=== PATIENT | male | born 1940 | race Caucasian/White ===

== ENCOUNTER 2017-02-28 12:35 | Day surgery (SDC) | payer MEDICARE, OTHER ==
[~2017-02-28] VITALS: Ht 180.3 cm; Wt 88.5 kg
[~2017-02-28 12:35] MED LIST: ASCO500T8 PO; ASPI325T32 PO; ATEN25TA PO; ATOR40TA69 PO; CHOL10002 PO; CLOP75TA3 PO; FLAX100031 PO; KETO120S3 TP; NAPR220C11 PO; RANI300C PO; Sodium Chloride LOK Flush 10 mL Syringe IV PRN; fentaNYL-PF 50 mCg/mL 2 mL Inj IVPUSH PRN
[2017-02-28] MEDS ORDERED: 0.9% Sodium Chloride 1,000 ML IV PRN (13:58)
[2017-02-28 14:09] VITALS: BP 152/84; PULSE 75; RESP 16; O2SAT 99
[2017-02-28] MEDS ORDERED: ASPI-973 PO (14:17)
[2017-02-28] MEDS ORDERED: METO25TA99 PO (14:18)
[2017-02-28] MEDS: 0.9% Sodium Chloride 1,000 ML IV PRN ×2 (15:00→15:16)
[2017-02-28 15:40] VITALS: BP 116/59; PULSE 68; RESP 16; O2SAT 97
--- NOTE | 2017-02-28 15:41 | PCM.ENDEGD ---
EGD Date of Service: February 28, 2017 Physician Ryan Young MD Pre Procedure Diagnosis: Reflux Post Procedure Dx & Findings: Gastric ulcer gastritis duodenitis duodenal ulcers. Procedure Esophagogastroduodenoscopy PROCEDURE IN DETAIL: After proper sedation, Olympus video endoscope was inserted into patient's mouth and esophagus was successfully intubated. Scope introduced esophagus. Esophagus showed normal shiny whitish mucosa consistent with squamous cell component. Z line was intact at 43 cm from the incisors; scope further advanced to the stomach. Stomach showed irritation erosion as well as 3-4 mm gastric ulcer with surrounding inflammation. Biopsies were obtained. Cardia fundus body antrum pylorus were all visualized. Retroflexion was done. Stomach was easily inflated and deflatable using air. Scope further events to the distal duodenum. Duodenum showed irritation redness consistent with linitis as well as several superficial ulcerations from the first pass to the second pass of the duodenum. Biopsies obtained of the ulcers as well as the duodenitis. Impression Gastric ulcer gastritis duodenitis duodenal ulcers. Recommendation Await biopsies Stop NSAIDs There is a history of allergies to PPI. If he indeed has significant allergies to PPI, consider high-dose Zantac with Carafate. If he does not have significant allergies to PPI, I would pursue PPI use. Follow up in GI clinic in one to 2 weeks to discuss this.. Presedation Assessment Risks and Benefits Informed consent was obtained from the patient after all risks and benefits including but not limited to drug reaction, infection, pain, bleeding, perforation, as well as alternatives were discussed. Patient monitoring Continuous pulse oximetry, cardiac monitoring, blood pressure monitoring, IV access, and oxygen at 2L per nasal cannula. Periprocedural Fentanyl: Fentanyl 100mcg Incrementally Midazolam: Midazolam 5mg Incrementally Complications There were no periprocedural complications identified. Post Procedure Plan Post Procedure Recommendations 1. Restrict activities today. 2. Resume normal activities in the morning. 3. Resume medications. 4. GERD behavioral modification: - Avoid fatty, acidic, spicy, large meals - Do not lie down after meals - Do not eat or drink anything for at least 2 1/2 hours before going to bed at night - Discontinue tobacco and alcohol - Decrease or avoid caffeine - Avoid chocolate and mints - Decrease weight - Avoid aspirin and non steroidal anti-inflammatory agents (NSAID) such as Aleve, Advil, Mobic, Naproxen, Ibuprofen, etc 5. Add proton pump inhibitor. Take 30 minutes before 1st meal of the day. 6. Patient informed of normal post procedure side effects as bloating, drowsiness, blood streaking in the stool 7. If gastric biopsy reveal H.pylori, continue with appropriate treatment 8. If small bowel biopsy reveals celiac, continue with appropriate treatment 9. Please don't hesitate to call me with any questions Ryan Young MD February 28, 2017 15:40
--- NOTE | 2017-02-28 15:42 | PCM.ENDCOL ---
Colonoscopy Date of Service: February 28, 2017 Physician Ryan Young MD Pre Procedure Diagnosis: Screening Post Procedure Dx & Findings: Polyps hemorrhoids Procedure Colonoscopy PROCEDURE IN DETAIL: Prep adequate Withdrawal time 9 minutes After unremarkable rectal examination the Olympus video colonoscope was inserted patient's anal canal and was advanced to cecum. Landmarks were identified including the ileocecal valve and appendiceal orifice. Scope was withdrawn systematically. Visualized colonic mucosa showed healthy shiny mucosa with normal healthy-appearing vasculature. In the ascending colon, there was 1 mm polyp which was removed completely using cold forceps. In the rectosigmoid junction, there was a 3-4 mm polyp which was removed completely using cold snare. In the rectum retroflexion was done which showed hemorrhoids. Anal canal was inspected carefully on the way out and hemorrhoids noted. Impression Polyp 2 status post complete removal Hemorrhoids Recommendation Repeat colonoscopy 5 years Presedation Assessment Risks and Benefits Informed consent was obtained from the patient after all risks and benefits including but not limited to drug reaction, infection, pain, bleeding, perforation, as well as alternatives were discussed. Patient monitoring Continuous pulse oximetry, cardiac monitoring, blood pressure monitoring, IV access, and oxygen at 2L per nasal cannula. Complications There were no periprocedural complications identified. Post Procedure Plan Post Procedure Recommendations 1. Restrict activities today. 2. Resume normal activities in the morning. 3. Resume medications. 4. Patient informed of normal post procedure side effects as bloating, drowsiness, blood streaking in the stool. 5. average risk CRCS. If colon polyps come back as: -Hyperplastic- can repeat colonoscopy in 10 years -Tubular adenoma- repeat colonoscopy in 5 years -Tubulovillous/villous adenoma- repeat colonoscopy in 3 years -If any dysplasia- return to clinic as soon as possible 6. Please don't hesitate to call me with any questions. Ryan Young MD February 28, 2017 15:42
[2017-02-28 15:50] VITALS: BP 123/59; PULSE 64; RESP 16; O2SAT 97
[2017-02-28 16:00] VITALS: BP 126/62; PULSE 63; RESP 16; O2SAT 98
--- NOTE | 2017-03-02 14:28 | PATH ---
SURGICAL PATHOLOGY Attending Physician:Ryan Young M.D. CASE STATUS: Signed Out PATIENT NAME: JATIN BARNHART I. PID: [id number] : 1940 DATE COLLECTED:02/28/2017 00:00 SPECIMEN: 1: Duodenum, Biopsy 2: Gastric, Biopsy 3: Colon, Biopsy 4: Colon, Biopsy CLINICAL HISTORY: 1. DUODENAL BIOPSY 2. GASTRIC BIOPSY 3. ASCENDING COLON POLYP 4. RECTO-SIGMOID POLYP FINAL DIAGNOSIS: 1.DUODENAL BIOPSY: CHANGES OF ACUTE DUODENITIS WITH AREAS OF SUPERFICIAL ULCERATION. Negative for celiac disease. Negative for dysplasia and malignancy. 2.GASTRIC BIOPSY: MILD CHRONIC GASTRITIS INVOLVING ANTRAL AND FUNDIC MUCOSA. Negative for evidence of Helicobacter. Negative for intestinal metaplasia. Negative for dysplasia and malignancy. 3.ASCENDING COLON POLYP: POLYPOID-SHAPED FRAGMENT OF COLON MUCOSA ASSOCIATED WITH A PROMINENT MUCOSAL LYMPHOID AGGREGATE. Negative for dysplasia and malignancy. 4.RECTOSIGMOID POLYP: HYPERPLASTIC POLYP INVOLVING BOTH BIOPSY FRAGMENTS. ICD10 K29.70 GROSS DESCRIPTION: The specimen is received in four formalin filled containers labeled with the patient's name. 1). The specimen is sublabeled "duodenum" and consists of 2 portions of tissue which aggregate to 0.3 x 0.3 x 0.2 CM. The specimen is entirely submitted in cassette 1A. 2). The specimen is sublabeled "gastric" and consists of 3 portions of tissue which aggregate to 0.3 x 0.3 x 0.2 CM. The specimen is entirely submitted in cassettes 2A. 3). The specimen is sublabeled "ascending colon polyp" and consists of 2 portions of tissue which aggregate to 0.3 x 0.3 x 0.2 CM. The specimen is entirely submitted in cassette 3A. 4). The specimen is sublabeled "recto-sigmoid polyp" and consists of 2 portions of tissue which aggregate to 0.4 x 0.2 x 0.2 CM. The specimen is entirely submitted in cassette 4A. 03/01/2017 [facility] MICRO DESCRIPTION: See diagnosis. ICD-9 CODES: CPT CODES: 1: 35215 2: 96390 3: 03621 4: 14574 Electronically Signed Out Rajeev Howell MD [facility] Pathology [facility] [address] [place] [address] Technical component performed at [facility], [address], [place], [address]
== END 2017-02-28 23:59 | disposition home or self-care (01) ==
LOC: END 12:35
PROVIDERS: ATTEND Internal Medicine
DX: Z12.11 Encounter for screening for malignant neoplasm of colon (principal); Z86.010 Personal history of colon polyps; K63.5 Polyp of colon; K64.9 Unspecified hemorrhoids; K29.80 Duodenitis without bleeding; K29.50 Unspecified chronic gastritis without bleeding; K21.9 Gastro-esophageal reflux disease without esophagitis; I25.10 Atherosclerotic heart disease of native coronary artery without angina pectoris; E78.5 Hyperlipidemia, unspecified; M54.89 Other dorsalgia; Z95.5 Presence of coronary angioplasty implant and graft; Z86.73 Personal history of transient ischemic attack (TIA), and cerebral infarction without residual deficits; Z79.82 Long term (current) use of aspirin
CPT/HCPCS: 43239; 45380; 45385; 88305; 99153; G0500; J7030